=== PATIENT | female | born 1950 ===

== ENCOUNTER 2017-05-07 20:27 | Observation (INO) | payer SELFPAY ==
[2017-05-07 21:21] LABS: VENOUS BLOOD GAS BASE EXCESS 5.8 mmol/L (0.0-2.0); VENOUS BLOOD GAS PCO2 44 mmHg (40-60); VENOUS BLOOD GAS PO2 39 mm/Hg (30-55); VENOUS BLOOD PH 7.45 (7.32-7.43)
[2017-05-07 21:27] LABS: BASO # 0.1 K/uL (0.0-0.2); BASO % 0.6 % (0.0-2.0); EOS # 0.1 K/uL (0.0-0.7); EOS % 0.4 % (0.0-4.0); HEMOGLOBIN 13.1 g/dL (12.0-16.0); LYMPH # 2.9 K/uL (1.0-4.3); LYMPH % 16.6 % (20.0-40.0); MEAN CELL VOLUME 88.5 fl (81.0-99.0); MEAN CORPUSCULAR HEMOGLOBIN 29.3 pg (27.0-31.0); MEAN CORPUSCULAR HGB CONC 33.1 g/dL (33.0-37.0); MONO # 1.4 K/uL (0.0-0.8); MONO % 8.2 % (0.0-10.0); NEUT # 12.8 K/uL (1.8-7.0); NEUT % 74.2 % (50.0-75.0); RBC 4.45 Mil/uL (3.80-5.20); RED CELL DISTRIBUTION WIDTH 14.1 % (11.5-14.5); WHITE BLOOD COUNT 17.2 K/uL (4.8-10.8)
[2017-05-07 21:41] LABS: ALB/GLOB RATIO 1.1 (1.0-2.1); ALBUMIN 4.3 g/dL (3.5-5.0); ALT/SGPT 36 U/L (9-52); AST/SGOT 22 U/L (14-36); BLOOD UREA NITROGEN 18 mg/dl (7-17); CALCIUM 9.3 mg/dL (8.4-10.2); GFR AFRICAN-AMERICAN > 60; GFR NON-AFRICAN AMERICAN > 60
[2017-05-07 21:45] LABS: SQUAMOUS EPITHIAL 1 /hpf (0-5); URINE BACTERIA RARE (<OCC); URINE BILIRUBIN NEGATIVE (NEGATIVE); URINE BLOOD SMALL (NEGATIVE); URINE CLARITY CLEAR (Clear); URINE COLOR STRAW (YELLOW); URINE GLUCOSE (UA) NEG (Normal); URINE LEUKOCYTE ESTERASE NEG Leu/uL (Negative); URINE NITRATE NEGATIVE (NEGATIVE); URINE PROTEIN NEGATIVE (NEGATIVE); URINE UROBILINOGEN 0.2-1.0 mg/dL (0.2-1.0)
--- NOTE | 2017-05-07 21:50 | ED PDOC ---
HPI: Fever Fever Onset Was: 05/04/17 (subjective) What Antipyretic Given Prior To Arrival: Acetaminophen Recent Sick Contacts: No Have you had recent travel within the past 21 days to any of the following countries: [place], [place], [place] or [place]?: No Does Patient Have Hx Of Febrile Seizures: No Did The Patient Have A Seizure Today: No Symptoms Associated With Fever: denies: Vomiting, Diarrhea, Cough, Rash <Jimi Serrano - Last Filed: 05/08/17 00:38> Supervising Attending Note - Supervising Attending Note The Documented history was done by the: Physician Industrial Relations Officer, Attending Physician The documented physical exam was done by the: Physician Industrial Relations Officer, Attending Physician - Attestation: I have personally seen and examined this patient.: Yes I have fully participated in the care of the patient.: Yes I have reviewed all pertinent clinical information, including history, physical exam and plan: Yes <Allyson Syed - Last Filed: 05/08/17 15:34> Past Medical History Reviewed: Historical Data, Nursing Documentation, Vital Signs - Medical History PMH: HTN, Hyperlipidemia - Family History Family History: States: Unknown Family Hx <Jimi Serrano - Last Filed: 05/08/17 00:38> <Allyson Syed - Last Filed: 05/08/17 15:34> Vital Signs: Last Vital Signs Temp 98.6 F 05/08/17 07:32 Pulse 78 05/08/17 07:32 Resp 20 05/08/17 07:32 BP 135/81 05/08/17 07:32 Pulse Ox 96 05/08/17 07:32 - Home Medications Home Medications: Ambulatory Orders Medication Instructions Recorded Atorvastatin [Lipitor] 20 mg PO DAILY 05/08/17 Lisinopril [Zestril] 10 mg PO DAILY 05/08/17 Pantoprazole [Protonix EC Tab] 20 mg PO DAILY 05/08/17 oxyCODONE/Acetaminophen [Percocet 1 ea PO Q4 PRN #30 tab 05/08/17 5/325 mg Tab] - Allergies Allergies/Adverse Reactions: Allergies Allergy/AdvReac Type Severity Reaction Status Date / Time No Known Allergies Allergy Verified 05/07/17 20:34 Review of Systems ROS Statement: Except As Marked, All Systems Reviewed And Found Negative (see HPI) <Jimi Serrano - Last Filed: 05/08/17 00:38> Physical Exam - Reviewed Nursing Documentation Reviewed: Yes Vital Signs Reviewed: Yes - Physical Exam Appears: Positive for: Non-toxic, No Acute Distress, Uncomfortable Head Exam: Positive for: ATRAUMATIC, NORMOCEPHALIC Skin: Positive for: Normal Color, Warm, Dry Eye Exam: Positive for: Normal appearance, EOMI, PERRL Neck: Positive for: Normal, Painless ROM Cardiovascular/Chest: Positive for: Tachycardia. Negative for: Edema Respiratory: Positive for: Normal Breath Sounds. Negative for: Crackles, Wheezing, Respiratory Distress Gastrointestinal/Abdominal: Positive for: Bowel Sounds, Soft, Tenderness (RLQ/ LLQ) Back: Positive for: R CVA Tenderness. Negative for: Vertebral Tenderness Extremity: Negative for: Pedal Edema, Calf Tenderness Neurologic/Psych: Positive for: Alert, manager care management II-XII, Oriented <Jimi Serrano - Last Filed: 05/08/17 00:38> - Laboratory Results Result Diagrams: 05/07/17 21:14 05/07/17 21:14 - ECG O2 Sat by Pulse Oximetry: 98 <Jimi Serrano - Last Filed: 05/08/17 00:38> - Laboratory Results Result Diagrams: 05/08/17 05:30 05/07/17 21:14 <Allyson Syed - Last Filed: 05/08/17 15:34> - Progress ED Course And Treament: 66 yo F w PMHx of HTN, HLD, and left knee OA presents to ER w a 15 day h/o dysuria and subjective fever for three days -CBC -CMP -VBG -PT/INR/PTT -EKG -Mg/Phos -Udip -UA -UCx -BCx -CXR -Tylenol 975mg PO x1 -Toradol 15mg IV Stat x1 Update 2300: -Pain improved, but abdomen still TTP -WBC: 17.3 Update 0030: -No acute findings on CT A/P -Admitted to OBS, Dr Whiteside aware (Jimi Serrano) Disposition - Disposition Disposition Time: 00:30 <Jimi Serrano - Last Filed: 05/08/17 00:38> <Allyson Syed - Last Filed: 05/08/17 15:34> - Clinical Impression Clinical Impression: Leukocytosis, Abdominal pain, acute - Disposition Condition: STABLE Additional Comments <Jimi Serrano - Last Filed: 05/08/17 00:38> <KunalAllyson Llanos - Last Filed: 05/08/17 15:34> - Additional Comments Additional Comments: 66 yo F w PMHx of HTN, HLD, and left knee OA presents to ER w a 15 day h/o dysuria and subjective fever for three days. Pt and her two sons at bedside state that the 15 day dysuria has been associated w mild lower abdominal pain. She had recently driven up to [place] from [place] for a family vacation, and since the car ride, she has been complaining of right flank/hip pain. She denies dizziness, nausea, vomiting, diarrhea, hematuria, urinary incontinence or retention. However, she does state having a mild headache and last having a BM 2-3 days ago. She also has h/o of receiving abx four months ago for UTI and had been referred to [facility] for a prolapsed bladder in need of a mesh placement. Otherwise, she denies chest pain, palpitations, SOB, dyspnea, cough, or other myalgias. (Jimi Serrano)
[2017-05-07 21:58] LABS: INR 1.2 (0.9-1.2); PARTIAL THROMBOPLASTIN TIME 32.7 Seconds (25.6-37.1); PROTHROMBIN TIME 12.3 Seconds (9.8-13.1)
[2017-05-07] MEDS ORDERED: Iohexol 300 100 ML IJ ONE (23:29)
[2017-05-07] MEDS ORDERED: Sodium Chloride 0.9% 50 ML IV ONE (23:30)
--- NOTE | 2017-05-08 01:17 | CP.PCM.HP ---
History of Present Illness - History of Present Illness History of Present Illness: PCP: None Chief complaint: Fever, pains to the right thigh and abdomen HPI: 66 years old female with hx of HTN, HLD, and osteopenia with bilateral knee pains, comes with 3 days of subjected fevers, Chills, Pain to the mid right thigh radiating up to the buttock posteriorly an to the RLQ and pelvis anteriorly. Also pain to both left and right flank. This pain has been continuous and increased with pressure and with no significant relief with her home medications. PMH: HTN; HLD; Osteopenia PSH: No past surgical Hx SH: No illegal drug use; No alcohol Use; No smoking of cigarettes; live with family FH: Unknown family hx Allergies: NKDA Medication: lisinopril/ Lipitor/ pantoprazole Present on Admission - Present on Admission Any Indicators Present on Admission: No History of DVT/PE: No History of Uncontrolled Diabetes: No Urinary Catheter: No Decubitus Ulcer Present: No Review of Systems - Constitutional Constitutional: Chills, Fever, Headache. absent: Anorexia, Fatigue - EENT Eyes: absent: Diplopia, Floaters, Photophobia, Requires Corrective Lenses Ears: absent: Decreased Hearing, Ear Discharge, Ear Pain, Tinnitus Nose/Mouth/Throat: absent: Epistaxis, Nasal Congestion, Nasal Discharge - Cardiovascular Cardiovascular: Chest Pain, Leg Edema. absent: Dyspnea, Edema - Respiratory Respiratory: absent: Cough, Dyspnea, Wheezing - Gastrointestinal Gastrointestinal: Constipation, Heartburn. absent: Diarrhea, Nausea, Vomiting - Genitourinary Genitourinary: Dysuria, Flank Pain, Hematuria, Urinary Frequency - Musculoskeletal Musculoskeletal: Arthralgias, Back Pain, Muscle Cramps, Muscle Weakness, Myalgias - Integumentary Integumentary: absent: Pruritus, Rash, Skin Ulcer, Sores, Striae, Swelling - Neurological Neurological: Headaches. absent: Confusion, Numbness, Focal Weakness, Vertigo, Weakness - Psychiatric Psychiatric: absent: Anxiety, Depression, Panic Attacks - Endocrine Endocrine: absent: Palpitations, Polydipsia, Polyphagia, Polyuria - Hematologic/Lymphatic Hematologic: absent: Easy Bleeding, Easy Bruising Past Patient History - Past Medical History & Family History Past Medical History?: Yes - Past Social History Smoking Status: Never Smoked Chewing Tobacco Use: No Cigar Use: No Alcohol: None Drugs: Denies Home Situation {Lives}: With Family - CARDIAC Hx Hypercholesterolemia: Yes Hx Hypertension: Yes - PULMONARY Hx Respiratory Disorders: No - NEUROLOGICAL Hx Neurological Disorder: No - HEENT Hx HEENT Problems: No - RENAL Hx Chronic Kidney Disease: No - ENDOCRINE/METABOLIC Hx Endocrine Disorders: No - HEMATOLOGICAL/ONCOLOGICAL Hx Blood Disorders: No - INTEGUMENTARY Hx Dermatological Problems: No - MUSCULOSKELETAL/RHEUMATOLOGICAL Hx Arthritis: Yes (Both knees) - GENITOURINARY/GYNECOLOGICAL Hx Genitourinary Disorders: No - PSYCHIATRIC Hx Psychophysiologic Disorder: No Hx Substance Use: No - SURGICAL HISTORY Hx Surgeries: No - ANESTHESIA Hx Anesthesia: No Meds Allergies/Adverse Reactions: Allergies Allergy/AdvReac Type Severity Reaction Status Date / Time No Known Allergies Allergy Verified 05/07/17 20:34 Physical Exam - Constitutional Appears: No Acute Distress - Head Exam Head Exam: ATRAUMATIC, NORMAL INSPECTION, NORMOCEPHALIC - Eye Exam Eye Exam: EOMI, Normal appearance - ENT Exam ENT Exam: Mucous Membranes Moist, Normal Exam, Normal External Ear Exam, Normal Oropharynx - Neck Exam Neck exam: Positive for: Full Rom, Normal Inspection. Negative for: Lymphadenopathy, Tenderness - Respiratory Exam Respiratory Exam: Chest Wall Tenderness, Clear to Auscultation Bilateral. absent: Rales, Rhonchi, Wheezes - Cardiovascular Exam Cardiovascular Exam: REGULAR RHYTHM, RRR, +S1, +S2. absent: Gallop, JVD - GI/Abdominal Exam GI & Abdominal Exam: absent: Normal Bowel Sounds, Soft Additional comments: Flat soft, Generalized tenderness with mild guarding but no rebound tenderness. - Rectal Exam Rectal Exam: Deferred - Extremities Exam Additional comments: Pain to the sia-lateral tight thigh proximal 1/2. pain to both legs on palpation - Back Exam Back exam: CVA tenderness (L), CVA tenderness (R), NORMAL INSPECTION - Neurological Exam Neurological exam: Alert, CN II-XII Intact, Oriented x3, Reflexes Normal - Psychiatric Exam Psychiatric exam: Normal Affect, Normal Mood - Skin Skin Exam: Dry, Intact, Normal Color, Warm Results - Vital Signs Recent Vital Signs: Last Vital Signs Temp 98.6 F 05/08/17 01:09 Pulse 88 05/08/17 01:09 Resp 16 05/08/17 01:09 BP 142/81 05/08/17 01:09 Pulse Ox 100 05/08/17 01:09 - Labs Result Diagrams: 05/07/17 21:14 05/07/17 21:14 - EKG Data EKG comments: Sinus Tachycardia 126/min - Imaging and Cardiology CT scan - abdomen Status: Report reviewed by me Additional comment: FINDINGS: Lower thorax: A small hiatal hernia is present. ABDOMEN: Liver: Unremarkable. No mass. Gallbladder and bile ducts: Unremarkable. No calcified stones. No ductal dilation. Pancreas: Unremarkable. No mass. No ductal dilation. Spleen: Unremarkable. No splenomegaly. Adrenals: Unremarkable. No mass. Kidneys and ureters: The right kidney is normal. There is a focal left renal hypodensity that cannot be further characterized on the current examination. No hydronephrosis. Stomach and bowel: Unremarkable. No obstruction. No mucosal thickening. Appendix: A normal appendix is identified. PELVIS: Bladder: Unremarkable. No mass. Reproductive: Unremarkable as visualized. ABDOMEN and PELVIS: Intraperitoneal space: Unremarkable. No free air. No significant fluid collection. Bones/joints: No acute fracture. No dislocation. Soft tissues: Unremarkable. Vasculature: The vasculature demonstrates diffuse moderate atherosclerotic calcification. No abdominal aortic aneurysm. Lymph nodes: Unremarkable. No enlarged lymph nodes. IMPRESSION: No acute findings. No nephrolithiasis or obstructive uropathy. Normal appendix Chest x-ray Status: Image reviewed by me Additional comment: No Infiltrate. Assessment & Plan - Assessment and Plan (Free Text) Assessment: #. Generalized body aches #. Myalgias #. SIRS #. leukocytosis Plan: 66 years old female with hx of HTN, HLD, and osteopenia with bilateral knee pains, comes with 3 days of subjected fevers, Chills, Pain to the mid right thigh radiating up to the buttock posteriorly an to the RLQ and pelvis anteriorly. Also pain to both left and right flank, associated with headache, dizziness, dysuria and urinary frequency. #. Generalized body aches which appears to be myalgias, myocitis involving the abdomen, right lower extremity and the back. The patient also has urinary symptoms with mild fever. All these symptoms could be caused by Statin therapy. r/o Infection - CT of Abdomen showed no acute Pathology - Hold Lipitor - Pain management with Toradol - Follow ESR/ CPK #. SIRS with Heart rate of 126/min, Temperature of 100.6F WBC of 17.2 and no definite location of infection - Consult ID Dr Rosenberg - follow Blood and urine cultures #. Right thigh pain most likely muscular, r/o DVT - Duplex US of the right lower extremity #. Neutrophilic leukocytosis - follow WBC - Stress ulcer Prophylaxis with Pantoprazole #. DVT prophylaxis with Lovenox #. Code Status: Full - Date & Time Date: 05/08/17 Time: 01:16
[2017-05-08 02:02] VITALS: O2SAT 96
[2017-05-08] MEDS ORDERED: Sodium Chloride 0.9% 1,000 ML IV SCH (02:30)
--- NOTE | 2017-05-08 07:05 | CT ---
PROCEDURE: CT Abdomen and Pelvis with contrast HISTORY: RIGHT flank pain and fever COMPARISON: None. TECHNIQUE: Contrast dose: 100 cc of Omnipaque 300 Radiation dose: Total exam DLP = 829 mGy-cm. This CT exam was performed using one or more of the following dose reduction techniques: Automated exposure control, adjustment of the mA and/or kV according to patient size, and/or use of iterative reconstruction technique. FINDINGS: LOWER THORAX: Unremarkable. LIVER: Unremarkable. No gross lesion or ductal dilatation. GALLBLADDER AND BILE DUCTS: Unremarkable. PANCREAS: Unremarkable. No gross lesion or ductal dilatation. SPLEEN: Unremarkable. ADRENALS: Unremarkable. No mass. KIDNEYS AND URETERS: Unremarkable. No hydronephrosis. No solid mass. VASCULATURE: Unremarkable. No aortic aneurysm. BOWEL: Unremarkable. No obstruction. No gross mural thickening. APPENDIX: Normal appendix. PERITONEUM: Unremarkable. No free fluid. No free air. LYMPH NODES: Unremarkable. No enlarged lymph nodes. BLADDER: Unremarkable. REPRODUCTIVE: Unremarkable. BONES: No acute fracture. OTHER FINDINGS: None. IMPRESSION: Unremarkable contrast enhanced CT of the abdomen and pelvis.
--- NOTE | 2017-05-08 07:15 | RAD ---
HISTORY: Sepsis Patient COMPARISON: No prior. FINDINGS: LUNGS: No active pulmonary disease. PLEURA: No significant pleural effusion identified, no pneumothorax apparent. CARDIOVASCULAR: Normal. OSSEOUS STRUCTURES: No significant abnormalities. VISUALIZED UPPER ABDOMEN: Normal. OTHER FINDINGS: None. IMPRESSION: No active disease.
[2017-05-08 07:26] LABS: BASO # 0.1 K/uL (0.0-0.2); BASO % 0.4 % (0.0-2.0); EOS # 0.1 K/uL (0.0-0.7); EOS % 0.6 % (0.0-4.0); HEMOGLOBIN 12.4 g/dL (12.0-16.0); LYMPH # 2.6 K/uL (1.0-4.3); LYMPH % 18.8 % (20.0-40.0); MEAN CELL VOLUME 88.7 fl (81.0-99.0); MEAN CORPUSCULAR HEMOGLOBIN 29.3 pg (27.0-31.0); MEAN PLATELET VOLUME 7.8 fl (7.2-11.7); MONO # 1.2 K/uL (0.0-0.8); MONO % 8.9 % (0.0-10.0); NEUT # 9.9 K/uL (1.8-7.0); NEUT % 71.3 % (50.0-75.0); RBC 4.22 Mil/uL (3.80-5.20); RED CELL DISTRIBUTION WIDTH 14.3 % (11.5-14.5); WHITE BLOOD COUNT 13.9 K/uL (4.8-10.8)
[2017-05-08 07:33] VITALS: BP 135/81; PULSE 78; RESP 20; TEMP 98.6
[2017-05-08] MEDS ORDERED: Pantoprazole 20 mg EC Tab PO SCH (09:00)
[2017-05-08] MEDS ORDERED: Enoxaparin 40 mg Syringe SC SCH (09:00)
--- NOTE | 2017-05-08 12:47 | CP.PCM.DIS ---
Provider - Provider Date of Admission: 05/08/17 00:19 Attending physician: Winston Whiteside Primary care physician: NO FAMILY PROVIDER Time Spent in preparation of Discharge (in minutes): 20 Hospital Course - Lab Results Lab Results: Most Recent Lab Values WBC 13.9 K/uL (4.8-10.8) H 05/08/17 05:30 RBC 4.22 Mil/uL (3.80-5.20) 05/08/17 05:30 Hgb 12.4 g/dL (12.0-16.0) 05/08/17 05:30 Hct 37.4 % (34.0-47.0) 05/08/17 05:30 MCV 88.7 fl (81.0-99.0) 05/08/17 05:30 MCH 29.3 pg (27.0-31.0) 05/08/17 05:30 MCHC 33.0 g/dL (33.0-37.0) 05/08/17 05:30 RDW 14.3 % (11.5-14.5) 05/08/17 05:30 Plt Count 267 K/uL (130-400) 05/08/17 05:30 MPV 7.8 fl (7.2-11.7) 05/08/17 05:30 Neut % (Auto) 71.3 % (50.0-75.0) 05/08/17 05:30 Lymph % (Auto) 18.8 % (20.0-40.0) L 05/08/17 05:30 [place] % (Auto) 8.9 % (0.0-10.0) 05/08/17 05:30 Eos % (Auto) 0.6 % (0.0-4.0) 05/08/17 05:30 Baso % (Auto) 0.4 % (0.0-2.0) 05/08/17 05:30 Neut # 9.9 K/uL (1.8-7.0) H 05/08/17 05:30 Lymph # 2.6 K/uL (1.0-4.3) 05/08/17 05:30 [place] # 1.2 K/uL (0.0-0.8) H 05/08/17 05:30 Eos # 0.1 K/uL (0.0-0.7) 05/08/17 05:30 Baso # 0.1 K/uL (0.0-0.2) 05/08/17 05:30 ESR 76 mm/hr (0-30) H 05/08/17 05:30 PT 12.3 Seconds (9.8-13.1) 05/07/17 21:14 INR 1.2 (0.9-1.2) 05/07/17 21:14 APTT 32.7 Seconds (25.6-37.1) 05/07/17 21:14 pO2 39 mm/Hg (30-55) 05/07/17 21:15 VBG pH 7.45 (7.32-7.43) H 05/07/17 21:15 VBG pCO2 44 mmHg (40-60) 05/07/17 21:15 VBG HCO3 28.9 mmol/L 05/07/17 21:15 VBG Total CO2 32.0 mmol/L (22-28) H 05/07/17 21:15 VBG O2 Sat (Calc) 82.9 % (40-65) H 05/07/17 21:15 VBG Base Excess 5.8 mmol/L (0.0-2.0) H 05/07/17 21:15 VBG Potassium 4.0 mmol/L (3.6-5.2) 05/07/17 21:15 Sodium 137.0 mmol/L (132-148) 05/07/17 21:15 Chloride 101.0 mmol/L (98-107) 05/07/17 21:15 Glucose 155 mg/dL (65-105) H 05/07/17 21:15 Lactate 1.3 mmol/L (0.7-2.1) 05/07/17 21:15 FiO2 21.0 % 05/07/17 21:15 Sodium 138 mmol/l (132-148) 05/07/17 21:14 Potassium 4.2 MMOL/L (3.6-5.0) 05/07/17 21:14 Chloride 100 mmol/L (98-107) 05/07/17 21:14 Carbon Dioxide 30 mmol/L (22-30) 05/07/17 21:14 Anion Gap 13 (10-20) 05/07/17 21:14 BUN 18 mg/dl (7-17) H 05/07/17 21:14 Creatinine 0.9 mg/dL (0.7-1.2) 05/07/17 21:14 Est GFR ( Amer) > 60 05/07/17 21:14 Est GFR (Non-Af Amer) > 60 05/07/17 21:14 Random Glucose 148 mg/dL (65-105) H 05/07/17 21:14 Calcium 9.3 mg/dL (8.4-10.2) 05/07/17 21:14 Phosphorus 3.3 mg/dl (2.5-4.5) 05/07/17 21:14 Magnesium 2.0 MG/DL (1.6-2.3) 05/07/17 21:14 Total Bilirubin 0.6 mg/dl (0.2-1.3) 05/07/17 21:14 AST 22 U/L (14-36) 05/07/17 21:14 ALT 36 U/L (9-52) 05/07/17 21:14 Alkaline Phosphatase 89 U/L (38-126) 05/07/17 21:14 Total Creatine Kinase 49 U/L (30-135) 05/08/17 05:30 Total Protein 8.2 G/DL (6.3-8.2) 05/07/17 21:14 Albumin 4.3 g/dL (3.5-5.0) 05/07/17 21:14 Globulin 3.8 gm/dL (2.2-3.9) 05/07/17 21:14 Albumin/Globulin Ratio 1.1 (1.0-2.1) 05/07/17 21:14 Venous Blood Potassium 4.0 mmol/L (3.6-5.2) 05/07/17 21:15 Urine Color Straw (YELLOW) 05/07/17 21:14 Urine Clarity Clear (Clear) 05/07/17 21:14 Urine pH 7.0 (5.0-8.0) 05/07/17 21:14 Ur Specific [place] 1.008 (1.003-1.030) 05/07/17 21:14 Urine Protein Negative mg/dL (NEGATIVE) 05/07/17 21:14 Urine Glucose (UA) Neg mg/dL (Normal) 05/07/17 21:14 Urine Ketones Negative mg/dL (NEGATIVE) 05/07/17 21:14 Urine Blood Small (NEGATIVE) 05/07/17 21:14 Urine Nitrate Negative (NEGATIVE) 05/07/17 21:14 Urine Bilirubin Negative (NEGATIVE) 05/07/17 21:14 Urine Urobilinogen 0.2-1.0 mg/dL (0.2-1.0) 05/07/17 21:14 Ur Leukocyte Esterase Neg [place]/uL (Negative) 05/07/17 21:14 Urine RBC (Auto) 1 /hpf (0-3) 05/07/17 21:14 Urine Microscopic WBC < 1 /hpf (0-5) 05/07/17 21:14 Ur Squamous Epith Cells 1 /hpf (0-5) 05/07/17 21:14 Urine Bacteria Rare (<OCC) 05/07/17 21:14 - Hospital Course Hospital Course: 66 years old female with hx of HTN, HLD,OA presented with worsening right hip pain not relieved with her usual pain medication Aleve. In Er patient found to have WBC 17 K and Tmax 100.6 so was placed under observation to ruloe out infection. She was started on pain management and IVF.She remained hemodynamically stable, afebrile, WBC trended down to 13. 9 with no antibiotics. Patient denies any abdominal pain, nausea , vomiting cough , chest pain or SOB. complains of right hip pain especially with walking . Ct abdomen and pelvis showed no acute pathology UA -- clear CXr with no infiltrates Impression Dx Intractable right hip pain with decresaed ROM secondary to osteoarthritis --- Will need follow up with orthopedist as out patient Will prescribe Percoset PRN for pain Leukocytosis- most likely reactive. No source of infection so ne need for any antibiotics HTN- controlled. Continue home meds Dyslipidemia- on statin Stress ulcer Prophylaxis with Pantoprazole Discharge Exam - Head Exam Head Exam: ATRAUMATIC, NORMAL INSPECTION, NORMOCEPHALIC - Eye Exam Eye Exam: EOMI, Normal appearance, PERRL Pupil Exam: NORMAL ACCOMODATION - ENT Exam ENT Exam: Mucous Membranes Moist, Normal Exam - Neck Exam Neck exam: Full Rom, Normal Inspection - Respiratory Exam Respiratory Exam: Clear to PA & Lateral, NORMAL BREATHING PATTERN. absent: Rales, Rhonchi, Wheezes - Cardiovascular Exam Cardiovascular Exam: REGULAR RHYTHM, RRR, +S1, +S2. absent: JVD - GI/Abdominal Exam GI & Abdominal Exam: Normal Bowel Sounds, Soft. absent: Distended, Guarding, Rebound, Tenderness - Rectal Exam Rectal Exam: Deferred - Extremities Exam Extremities exam: normal capillary refill, normal inspection, tenderness (right hip), pedal pulses present (decreased ROM ) - Back Exam Back exam: NORMAL INSPECTION - Neurological Exam Neurological exam: Alert, CN II-XII Intact, Oriented x3, Reflexes Normal - Psychiatric Exam Psychiatric exam: Normal Affect, Normal Mood - Skin Skin Exam: Dry, Intact, Normal Color, Warm Discharge Plan - Discharge Medications Prescriptions: oxyCODONE/Acetaminophen [Percocet 5/325 mg Tab] 1 ea PO Q4 PRN #30 tab PRN Reason: Pain, Severe (8-10) - Follow Up Plan Condition: STABLE Disposition: HOME/ ROUTINE Patient education suggested?: Yes Instructions: Leukocytosis (DC), Osteoarthritis (DC) Referrals: FAMILY PROVIDER,NO [Primary Care Provider] -
--- NOTE | 2017-05-08 12:57 | CARD ---
APPROVED REPORT EKG Measurement Heart [id number] <Conclusion> Sinus tachycardia Minimal voltage criteria for LVH, may be normal variant Nonspecific ST and T wave abnormality Abnormal ECG
== END 2017-05-08 14:43 | disposition home or self-care (01) ==
LOC: H.ER 20:27 → H.ERHOLD 05-08 00:19 → H.MEDSURG1 05-08 01:31
PROVIDERS: ADMIT Internal Medicine; ATTEND Internal Medicine
DX: M16.11 Unilateral primary osteoarthritis, right hip (principal); D72.829 Elevated white blood cell count, unspecified; I10 Essential (primary) hypertension; E78.5 Hyperlipidemia, unspecified; M17.12 Unilateral primary osteoarthritis, left knee; R30.0 Dysuria; M85.80 Other specified disorders of bone density and structure, unspecified site; M79.1 Myalgia; R65.10 Systemic inflammatory response syndrome (SIRS) of non-infectious origin without acute organ dysfunction
CPT/HCPCS: 36415; 71010; 74177; 80053; 81003; 82550; 82803; 83036; 83735; 84100; 84145; 85025; 85610; 85651; 85730; 87040; 87086; 93005; 99285; G0378; J1650; J1885; J7040; Q9967